=== PATIENT | female | born 1990 | race Caucasian/White ===

== ENCOUNTER 2021-02-26 10:10 | Emergency (ER) | payer OTHER ==
[2021-02-26 11:32] LABS: Absolute Neutrophil Ct (ANC) 6.17 (1.4-6.9); BASOPHIL % 0.5 % (0.0-0.4); Basophil (Absolute #) 0.04 (0-0.4); Eosinophil % 0.2 % (0.00-5.0); Eosinophil (Absolute #) 0.02 (0-0.5); Hematocrit 42.2 % (35-47); Hemoglobin 13.9 gm/dl (12.0-16.0); Lymphocyte (Absolute #) 1.45 (1.0-4.6); Lymphocytes % 17.4 % (24.0-44.0); Mean Cell Volume 96.6 fl (78-100); Mean Corpuscular Hemoglobin 31.8 pg (26-32); Mean Corpuscular Hgb Concent. 32.9 g/dl (32-36); Mean Platelet Volume 11.6 fl (7.5-11.0); Monocyte (Absolute #) 0.63 (0.0-1.3); Monocytes % 7.6 % (0.0-12.0); Neutrophil % 74.3 % (36.0-66.0); Platelet Count 220 K/mm3 (150-450); Red Blood Count 4.37 M/mm3 (4.1-5.4); Red Cell Distribution Width 12.8 % (11.5-14.0); White Blood Count 8.3 K/mm3 (4.0-10.5)
[2021-02-26 11:38] LABS: Appearance SLIGHTLY CLOUDY (CLEAR); Bacteria MODERATE /HPF (NEGATIVE); Bilirubin NEGATIVE (NEGATIVE); Blood NEGATIVE Ery/ul (0-5); Epithelial Cells FEW /HPF (FEW); Glucose NEGATIVE (NEGATIVE); Ketones MODERATE (NEGATIVE); Leukocyte Esterase NEGATIVE (NEGATIVE); Mucus SLIGHT /HPF (NEGATIVE); Nitrite NEGATIVE (NEGATIVE); Protein,Urine Dip 30 (Negative); Specific Gravity 1.042 (1.005-1.025); Urobilinogen NEGATIVE mg/dL (0-1)
[2021-02-26 11:41] LABS: ACETAMINOPHEN 30 ug/ml (10-30); ALBUMIN 4.5 g/dL (3.5-5.0); ALKALINE PHOSPHATASE 72 U/L (38-126); ANION GAP 16.4 MEQ/L (5-15); BLOOD UREA NITROGEN 9 mg/dL (7-17); CHLORIDE 108 mmol/L (98-107); Calcium 9.7 mg/dL (8.4-10.2); Carbon Dioxide 17 mmol/L (22-30); Creatinine 1 0.76 mg/dL (0.52-1.04); EST GLOMERULAR FILTRATION RATE > 60.0 ML/MIN; ETHYL ALCOHOL < 10 mg/dL (0-10); Glucose 109 mg/dL (74-106); Potassium 3.7 mmol/L (3.5-5.1); SALICYLATE 19.5 mg/dL (2-20); SGOT/AST 34 U/L (14-36); SGPT/ALT 20 U/L (0-35); SODIUM 138 mmol/L (137-145); Total Protein 7.4 g/dL (6.3-8.2)
[2021-02-26 11:51] LABS: Barbiturate,Urine NEGATIVE (NEGATIVE); Benzodiazepine,Urine POSITIVE (NEGATIVE); Cocaine,Urine NEGATIVE (NEGATIVE); Methadone,Urine NEGATIVE (NEGATIVE); Opiate,Urine NEGATIVE (NEGATIVE); PCP,Urine NEGATIVE (NEGATIVE); THC,Urine NEGATIVE (NEGATIVE)
--- NOTE | 2021-02-26 12:20 | ERPHSYRPT ---
- History of Present Illness Source: patient Exam Limitations: other (Poor historian) Patient Subjective Stated Complaint: Pt took approx 100 regular Excedrins around midnight last night and is now vomiting, no other complaints Triage Nursing Assessment: Pt was brought by her cousin to the ER due to taking approx 100 Excedrins, pt states that she doesn't know if she was trying to harm herself or not, states that she has in the past, vitasl wnl, restless, denies any other problems except vomiting, skin n/w/d, doesn't appear to be in any distress Physician History: 30 yo wf w overdose of Excedrin last night. Last dose at approximately midnight. Pt states that she has attempted suicide in the past. She will not talk about situational problems. Poison Control contacted. Timing/Duration: other (Last dose midnight) Severity of Symptoms-Max: mild Severity of Symptoms-Current: mild Context related to: other (Will not communicate) Associated Symptoms: denies symptoms, suicidal ideation Previous symptoms: same symptoms as today Allergies/Adverse Reactions: banana Allergy (Verified 02/26/21 10:31) Home Medications: Citalopram Hydrobromide [Citalopram HBr] 40 mg PO DAILY 02/26/21 [History] Hx Tetanus, Diphtheria Vaccination/Date Given: No Hx Influenza Vaccination/Date Given: Yes Hx Pneumococcal Vaccination/Date Given: No Travel Risk - International Travel Have you traveled outside of the country in past 3 weeks: No - Coronavirus Screening Are you exhibiting any of the following symptoms?: No Close contact with a COVID-19 positive Pt in past 14-21 Days: No - Vaccine Status Have you recieved a Covid-19 vaccination: Yes 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: [employer] - Past Medical History Pertinent Past Medical History: Yes Neurological History: Seizures Musculoskeletal History: Other Psycho-Social History: Bipolar Other Medical History: lupus - Past Surgical History Past Surgical History: Yes Other Surgical History: t&a, dnc x2 - Social History Smoking Status: Current every day smoker Exposure to second hand smoke: Yes Drug Use: marijuana, methamphetamines Patient Lives Alone: No Significant Family History: no pertinent family hx - Female History Hx Last Menstrual Period: now Hx Now: No - Review of Systems Constitutional: No Symptoms Eyes: No Symptoms Ears, Nose, & Throat: No Symptoms Respiratory: No Symptoms Cardiac: No Symptoms Abdominal/Gastrointestinal: No Symptoms Genitourinary Symptoms: No Symptoms Musculoskeletal: No Symptoms Skin: No Symptoms Neurological: No Symptoms Endocrine: No Symptoms Hematologic/Lymphatic: No Symptoms Immunological/Allergic: No Symptoms - Nursing Vital Signs Nursing Vital Signs: Initial Vital Signs Temperature 97.6 F 02/26/21 10:20 Pulse Rate 97 H 02/26/21 10:20 Respiratory Rate 25 H 02/26/21 10:20 Blood Pressure 114/65 02/26/21 10:20 O2 Sat by Pulse Oximetry 99 02/26/21 10:20 Pain Scale Pain Intensity 0 WNL - Physical Exam General Appearance: lethargy Eyes, Ears, Nose, Throat Exam: normal ENT inspection, TMs normal, pharynx normal, moist mucous membranes Neck Exam: normal inspection, non-tender, supple, full range of motion, No B rudzinski, No Kernig's, No meningismus Respiratory Exam: normal breath sounds, lungs clear, airway intact, No respiratory distress Cardiovascular Exam: regular rate/rhythm, normal heart sounds, normal peripheral pulses, No murmur Gastrointestinal/Abdominal Exam: soft, normal bowel sounds, No tenderness Extremities Exam: normal inspection, normal range of motion, No evidence of injury Peripheral Pulses: carotid (R): 2+, carotid (L): 2+ Current Suicidality: has suicide plan 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, oriented x 3, No anxious Appearance: appropriate appearance Behavior/Eye Contact/Speech: cooperative (Cooperative w exam but not w Hx), refused to answer Thoughts/Hallucinations: normal thought pattern, no apparent hallucination Skin Exam: normal color, warm, dry, No rash SpO2 Interpretation: normal SpO2: 98 O2 Delivery: Room Air - Course Nursing assessment & vital signs reviewed: Yes EKG Interpreted by Me: RATE (NSR/R74/IRBBB/Low voltage/Normal QT-QTc/No acute ST-Twave changes) Ordered Tests: Active Orders 24 hr Category Date Time Status EKG-ER Only STAT Care 02/26/21 10:21 Completed ACETAMINOPHEN Stat Lab 02/26/21 11:20 Completed ACETAMINOPHEN Stat Lab 02/26/21 13:50 Completed CBC W DIFF Stat Lab 02/26/21 11:20 Completed CMP Stat Lab 02/26/21 11:20 Completed CULTURE,URINE Stat Lab 02/26/21 11:09 Received ETHYL ALCOHOL Stat Lab 02/26/21 11:20 Completed HCG QUALITATIVE,SERUM Stat Lab 02/26/21 10:59 Completed SALICYLATE Stat Lab 02/26/21 11:20 Completed SALICYLATE Stat Lab 02/26/21 13:50 Completed UA W/RFX UR CULTURE Stat Lab 02/26/21 11:09 Completed Urine Triage Profile Stat Lab 02/26/21 11:09 Completed Medication Summary Discontinued Medications Generic Name Dose Route Start Last Admin Trade Name Sebastián PRN Reason Stop Dose Admin Sodium Chloride 1,000 mls @ 150 mls/hr 02/26/21 15:00 02/26/21 14:59 Sodium Chloride 0.9% 1000 Ml IV 03/28/21 14:59 150 mls/hr .[id number] OMAR Administration Sodium Chloride Confirm 02/26/21 14:57 Sodium Chloride 0.9% 1000 Ml Administered 02/26/21 14:58 Dose 1,000 mls @ ud .ROUTE .STK-MED ONE Lidocaine HCl Confirm 02/26/21 15:05 Xylocaine-Mpf 2% 5 Ml Vial Administered 02/26/21 15:06 Dose 5 ml .ROUTE .STK-MED ONE Lab/Rad Data: Laboratory Result Diagrams 02/26/21 11:20 02/26/21 11:20 Laboratory Results 02/26/21 02/26/21 02/26/21 Range/Units 14:17 13:50 11:20 WBC (4.0-10.5) K/mm3 RBC (4.1-5.4) M/mm3 Hgb (12.0-16.0) gm/dl Hct (35-47) % MCV (78-100) fl MCH (26-32) pg MCHC (32-36) g/dl RDW (11.5-14.0) % Plt Count (150-450) K/mm3 MPV (7.5-11.0) fl Gran % (36.0-66.0) % Eos # (Auto) (0-0.5) Absolute Lymphs (auto) (1.0-4.6) Absolute Monos (auto) (0.0-1.3) Lymphocytes % (24.0-44.0) % Monocytes % (0.0-12.0) % Eosinophils % (0.00-5.0) % Basophils % (0.0-0.4) % Absolute Granulocytes (1.4-6.9) Basophils # (0-0.4) Sodium 138 (137-145) mmol/L Potassium 3.7 (3.5-5.1) mmol/L Chloride 108 H (98-107) mmol/L Carbon Dioxide 17 L (22-30) mmol/L Anion Gap 16.4 H (5-15) MEQ/L BUN 9 (7-17) mg/dL Creatinine 0.76 (0.52-1.04) mg/dL Estimated GFR > 60.0 ML/MIN Glucose 109 H (74-106) mg/dL Calcium 9.7 (8.4-10.2) mg/dL Total Bilirubin 0.20 (0.2-1.3) mg/dL AST 34 (14-36) U/L ALT 20 (0-35) U/L Alkaline Phosphatase 72 (38-126) U/L Serum Total Protein 7.4 (6.3-8.2) g/dL Albumin 4.5 (3.5-5.0) g/dL Serum , Qual (Negative) Urine Color (YELLOW) Urine Appearance (CLEAR) Urine pH (5-6) Ur Specific [place] (1.005-1.025) Urine Protein (Negative) Urine Ketones (NEGATIVE) Urine Blood (0-5) Carlos/ul Urine Nitrite (NEGATIVE) Urine Bilirubin (NEGATIVE) Urine Urobilinogen (0-1) mg/dL Ur Leukocyte Esterase (NEGATIVE) Urine WBC (Auto) (0-5) /HPF Urine RBC (Auto) (0-2) /HPF U Epithel Cells (Auto) (FEW) /HPF Urine Bacteria (Auto) (NEGATIVE) /HPF Urine Mucus (Auto) (NEGATIVE) /HPF Urine Culture Reflexed (NO) Urine Glucose (NEGATIVE) mg/dL Salicylates 17.4 19.5 (2-20) mg/dL Urine Opiates Level (NEGATIVE) Ur Methadone (NEGATIVE) Acetaminophen 17 30 (10-30) ug/ml Urine Barbiturates (NEGATIVE) Ur Phencyclidine (PCP) (NEGATIVE) Urine Amphetamine (NEGATIVE) U Benzodiazepine Level (NEGATIVE) Urine Cocaine (NEGATIVE) Urine Marijuana (THC) (NEGATIVE) Ethyl Alcohol < 10 (0-10) mg/dL SARS-CoV-2 (PCR) NEGATIVE (NEGATIVE) 02/26/21 02/26/21 02/26/21 Range/Units 11:20 11:09 11:09 WBC 8.3 (4.0-10.5) K/mm3 RBC 4.37 (4.1-5.4) M/mm3 Hgb 13.9 (12.0-16.0) gm/dl Hct 42.2 (35-47) % MCV 96.6 (78-100) fl MCH 31.8 (26-32) pg MCHC 32.9 (32-36) g/dl RDW 12.8 (11.5-14.0) % Plt Count 220 (150-450) K/mm3 MPV 11.6 H (7.5-11.0) fl Gran % 74.3 H (36.0-66.0) % Eos # (Auto) 0.02 (0-0.5) Absolute Lymphs (auto) 1.45 (1.0-4.6) Absolute Monos (auto) 0.63 (0.0-1.3) Lymphocytes % 17.4 L (24.0-44.0) % Monocytes % 7.6 (0.0-12.0) % Eosinophils % 0.2 (0.00-5.0) % Basophils % 0.5 (0.0-0.4) % Absolute Granulocytes 6.17 (1.4-6.9) Basophils # 0.04 (0-0.4) Sodium (137-145) mmol/L Potassium (3.5-5.1) mmol/L Chloride (98-107) mmol/L Carbon Dioxide (22-30) mmol/L Anion Gap (5-15) MEQ/L BUN (7-17) mg/dL Creatinine (0.52-1.04) mg/dL Estimated GFR ML/MIN Glucose (74-106) mg/dL Calcium (8.4-10.2) mg/dL Total Bilirubin (0.2-1.3) mg/dL AST (14-36) U/L ALT (0-35) U/L Alkaline Phosphatase (38-126) U/L Serum Total Protein (6.3-8.2) g/dL Albumin (3.5-5.0) g/dL Serum , Qual (Negative) Urine Color YELLOW (YELLOW) Urine Appearance SLIGHTLY CLOUDY (CLEAR) Urine pH 5.0 (5-6) Ur Specific [place] 1.042 (1.005-1.025) Urine Protein 30 (Negative) Urine Ketones MODERATE (NEGATIVE) Urine Blood NEGATIVE (0-5) Carlos/ul Urine Nitrite NEGATIVE (NEGATIVE) Urine Bilirubin NEGATIVE (NEGATIVE) Urine Urobilinogen NEGATIVE (0-1) mg/dL Ur Leukocyte Esterase NEGATIVE (NEGATIVE) Urine WBC (Auto) 6-10 (0-5) /HPF Urine RBC (Auto) 6-10 (0-2) /HPF U Epithel Cells (Auto) FEW (FEW) /HPF Urine Bacteria (Auto) MODERATE (NEGATIVE) /HPF Urine Mucus (Auto) SLIGHT (NEGATIVE) /HPF Urine Culture Reflexed YES (NO) Urine Glucose NEGATIVE (NEGATIVE) mg/dL Salicylates (2-20) mg/dL Urine Opiates Level NEGATIVE (NEGATIVE) Ur Methadone NEGATIVE (NEGATIVE) Acetaminophen (10-30) ug/ml Urine Barbiturates NEGATIVE (NEGATIVE) Ur Phencyclidine (PCP) NEGATIVE (NEGATIVE) Urine Amphetamine POSITIVE (NEGATIVE) U Benzodiazepine Level POSITIVE (NEGATIVE) Urine Cocaine NEGATIVE (NEGATIVE) Urine Marijuana (THC) NEGATIVE (NEGATIVE) Ethyl Alcohol (0-10) mg/dL SARS-CoV-2 (PCR) (NEGATIVE) 02/26/21 Range/Units 10:59 WBC (4.0-10.5) K/mm3 RBC (4.1-5.4) M/mm3 Hgb (12.0-16.0) gm/dl Hct (35-47) % MCV (78-100) fl MCH (26-32) pg MCHC (32-36) g/dl RDW (11.5-14.0) % Plt Count (150-450) K/mm3 MPV (7.5-11.0) fl Gran % (36.0-66.0) % Eos # (Auto) (0-0.5) Absolute Lymphs (auto) (1.0-4.6) Absolute Monos (auto) (0.0-1.3) Lymphocytes % (24.0-44.0) % Monocytes % (0.0-12.0) % Eosinophils % (0.00-5.0) % Basophils % (0.0-0.4) % Absolute Granulocytes (1.4-6.9) Basophils # (0-0.4) Sodium (137-145) mmol/L Potassium (3.5-5.1) mmol/L Chloride (98-107) mmol/L Carbon Dioxide (22-30) mmol/L Anion Gap (5-15) MEQ/L BUN (7-17) mg/dL Creatinine (0.52-1.04) mg/dL Estimated GFR ML/MIN Glucose (74-106) mg/dL Calcium (8.4-10.2) mg/dL Total Bilirubin (0.2-1.3) mg/dL AST (14-36) U/L ALT (0-35) U/L Alkaline Phosphatase (38-126) U/L Serum Total Protein (6.3-8.2) g/dL Albumin (3.5-5.0) g/dL Serum , Qual NEGATIVE (Negative) Urine Color (YELLOW) Urine Appearance (CLEAR) Urine pH (5-6) Ur Specific [place] (1.005-1.025) Urine Protein (Negative) Urine Ketones (NEGATIVE) Urine Blood (0-5) Carlos/ul Urine Nitrite (NEGATIVE) Urine Bilirubin (NEGATIVE) Urine Urobilinogen (0-1) mg/dL Ur Leukocyte Esterase (NEGATIVE) Urine WBC (Auto) (0-5) /HPF Urine RBC (Auto) (0-2) /HPF U Epithel Cells (Auto) (FEW) /HPF Urine Bacteria (Auto) (NEGATIVE) /HPF Urine Mucus (Auto) (NEGATIVE) /HPF Urine Culture Reflexed (NO) Urine Glucose (NEGATIVE) mg/dL Salicylates (2-20) mg/dL Urine Opiates Level (NEGATIVE) Ur Methadone (NEGATIVE) Acetaminophen (10-30) ug/ml Urine Barbiturates (NEGATIVE) Ur Phencyclidine (PCP) (NEGATIVE) Urine Amphetamine (NEGATIVE) U Benzodiazepine Level (NEGATIVE) Urine Cocaine (NEGATIVE) Urine Marijuana (THC) (NEGATIVE) Ethyl Alcohol (0-10) mg/dL SARS-CoV-2 (PCR) (NEGATIVE) - Progress Progress Note: 02/26/21 15:[address] Peraza since 1 to 1 nursing not available 02/26/21 16:[address] Coleman at [facility] 02/26/21 22:07 Pt stable when EMS assumed care of pt Pt w good airway during entire stay. Tylenol/salicylate level way below toxic level Counseled pt/family regarding: lab results, diagnosis - Departure Departure Disposition: Transfer Clinical Impression: Overdose, Substance abuse Condition: Stable Critical Care Time: Yes Critical Care Time(excluding separately billable procedures): Critical 30-74 mins Referrals: YARITZA GONZALES, TIPPING MACHINE OPERATOR [Primary Care Provider] -
[2021-02-26 13:57] LABS: Amphetamine,Urine POSITIVE (NEGATIVE)
[2021-02-26] MEDS ORDERED: Sodium Chloride 0.9% 1000 ML 1,000 ML ONE (14:57)
[2021-02-26 15:00] LABS: SALICYLATE 17.4 mg/dL (2-20)
[2021-02-26] MEDS ORDERED: Sodium Chloride 0.9% 1000 ML 1,000 ML IV SCH (15:00)
[2021-02-26] MEDS ORDERED: Xylocaine-Mpf 2% 5 Ml Vial ONE (15:05)
[2021-02-26 18:12] VITALS: BP 117/63; PULSE 75
[2021-02-26 22:08] VITALS: O2SAT 98
== END 2021-02-26 18:30 | disposition critical access hospital (66) ==
LOC: ED 10:10
DX: T65.91XA Toxic effect of unspecified substance, accidental (unintentional), initial encounter (principal); F19.10 Other psychoactive substance abuse, uncomplicated
CPT/HCPCS: 36000; 36415; 76942; 80053; 80307; 81001; 81025; 85025; 87077; 87086; 87186; 93005; 96360; 96361; 99284; 99291; G0480; U0003

== ENCOUNTER 2021-04-27 18:40 | Emergency (ER) | payer OTHER ==
[2021-04-27] MEDS ORDERED: Sterile H2O 10 ml IJ ONE (19:26)
[2021-04-27] MEDS ORDERED: solu-MEDROL ONE (19:26)
--- NOTE | 2021-04-27 19:35 | ERPHSYRPT ---
- History of Present Illness Time Seen by Provider: 04/27/21 19:05 Source: patient Exam Limitations: no limitations Patient Subjective Stated Complaint: poison jie rash not improving, increased nasuea and eye swelling Triage Nursing Assessment: pt to ED c/o poison jie rash, nausea, and increased eye swelling after taking decadron injection at [facility] ED 04/24/21. pt states she was exposed to poison jie few days before beingseen at [facility], was given steroid shot, and has not felt well since then. also reports rash seems to be worsening. no diff breathing, no angioedema. Physician History: Patient is a 31-year-old white female who presents with a complaint of spreading worsening rash. She was seen in [facility] and diagnosed with probable poison jie was given a shot of Decadron and initially had some mild relief but later the rash came back worse. She has swelling around the eyes face extremities Timing/Duration: week(s) (2) Quality: burning, itchy Severity: severe Location: face, extremities Possible Causes: poison jie Modifying Factors: Improves With: antihistamine Associated Symptoms: denies symptoms Allergies/Adverse Reactions: banana Allergy (Verified 04/27/21 19:05) " enduced, does not have allergy anymore." Home Medications: lamoTRIgine [Lamotrigine] 25 mg PO DAILY 04/27/21 [History] Hx Tetanus, Diphtheria Vaccination/Date Given: No Hx Influenza Vaccination/Date Given: Yes Hx Pneumococcal Vaccination/Date Given: No Travel Risk - International Travel Have you traveled outside of the country in past 3 weeks: No (n) If Yes, where;: n - Coronavirus Screening Close contact with a COVID-19 positive Pt in past 14-21 Days: No - Vaccine Status Have you recieved a Covid-19 vaccination: No 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 - Review of Systems Constitutional: No Fever, No Chills Eyes: No Symptoms Ears, Nose, & Throat: No Symptoms Respiratory: No Cough, No Dyspnea Cardiac: No Chest Pain, No Edema, No Syncope Abdominal/Gastrointestinal: No Abdominal Pain, No Nausea, No Vomiting, No Diarrhea Genitourinary Symptoms: No Dysuria Musculoskeletal: No Back Pain, No Neck Pain Skin: No Rash Neurological: No Dizziness, No Focal Weakness, No Sensory Changes Psychological: No Symptoms Endocrine: No Symptoms All Other Systems: Reviewed and Negative - Past Medical History Pertinent Past Medical History: Yes Neurological History: Seizures Musculoskeletal History: Other Psycho-Social History: Bipolar Other Medical History: lupus - Past Surgical History Past Surgical History: Yes Other Surgical History: t&a, dnc x2 - Social History Smoking Status: Current every day smoker How long have you smoked: years Exposure to second hand smoke: Yes Drug Use: none Patient Lives Alone: No Significant Family History: no pertinent family hx - Female History Hx Last Menstrual Period: 04/24/21 Hx Now: No - Nursing Vital Signs Nursing Vital Signs: Initial Vital Signs Temperature 97.8 F 04/27/21 18:53 Pulse Rate 117 H 04/27/21 18:53 Respiratory Rate 16 04/27/21 18:53 Blood Pressure 127/67 04/27/21 18:53 O2 Sat by Pulse Oximetry 99 04/27/21 18:53 Pain Scale Pain Intensity 7 - Physical Exam General Appearance: mild distress Eye Exam: PERRL/EOMI, eyes nml inspection Ears, Nose, Throat Exam: normal ENT inspection, pharynx normal, moist mucous membranes Neck Exam: normal inspection, non-tender, supple, full range of motion Respiratory Exam: normal breath sounds, lungs clear, No respiratory distress Cardiovascular Exam: regular rate/rhythm, normal heart sounds Gastrointestinal/Abdomen Exam: soft, mass, No tenderness Back Exam: normal inspection, normal range of motion, No CVA tenderness, No vertebral tenderness Extremity Exam: normal inspection, normal range of motion Neurologic Exam: alert, oriented x 3, cooperative, normal mood/affect, sensation nml, No motor deficits Skin Exam: warm, rash, other (Vesicular rash linear in spots pruritic in nature) Lymphatic Exam: No adenopathy SpO2 Interpretation: normal SpO2: 99 O2 Delivery: Room Air - Course Nursing assessment & vital signs reviewed: Yes Ordered Tests: Medication Summary Discontinued Medications Generic Name Dose Route Start Last Admin Trade Name Freq PRN Reason Stop Dose Admin Methylprednisolone Sodium Succinate Confirm 04/27/21 19:26 Solu-Medrol Administered 04/27/21 19:27 Dose 125 mg .ROUTE .STK-MED ONE Sterile Water Confirm 04/27/21 19:26 Sterile H2o 10 Ml Administered 04/27/21 19:27 Dose 10 ml IJ .STK-MED ONE - Progress Progress: unchanged - Departure Departure Disposition: Home Clinical Impression: Contact dermatitis Condition: Stable Critical Care Time: No 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
[2021-04-27] MEDS ORDERED: solu-MEDROL 125 MG, Sterile H2O 10 ml 2 ML IM ONE ×2 (19:36)
[2021-04-27 19:56] VITALS: BP 101/59; PULSE 82; O2SAT 97
== END 2021-04-27 19:56 | disposition home or self-care (01) ==
LOC: ED 18:40
DX: L23.7 Allergic contact dermatitis due to plants, except food (principal)
CPT/HCPCS: 96372; 99283; J2930

== ENCOUNTER 2021-05-22 18:00 | Emergency (ER) | payer OTHER ==
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
[2021-05-22 18:13] VITALS: O2SAT 100
[2021-05-22] MEDS ORDERED: Sodium Chloride 0.9% 1000 ML 1,000 ML ONE (18:13)
[2021-05-22] MEDS ORDERED: Sodium Chloride 0.9% 1000 ML 1,000 ML IV STA (18:14)
[2021-05-22 18:31] VITALS: BP 117/88; PULSE 90
[2021-05-22 18:34] LABS: BASOPHIL % 0.5 % (0.0-0.4); Basophil (Absolute #) 0.04 (0-0.4); Eosinophil % 3.3 % (0.00-5.0); Eosinophil (Absolute #) 0.24 (0-0.5); Hematocrit 36.4 % (35-47); Hemoglobin 11.6 gm/dl (12.0-16.0); Lymphocyte (Absolute #) 1.89 (1.0-4.6); Lymphocytes % 25.6 % (24.0-44.0); Mean Cell Volume 97.6 fl (78-100); Mean Corpuscular Hemoglobin 31.1 pg (26-32); Mean Corpuscular Hgb Concent. 31.9 g/dl (32-36); Mean Platelet Volume 11.3 fl (7.5-11.0); Monocyte (Absolute #) 0.61 (0.0-1.3); Monocytes % 8.3 % (0.0-12.0); Neutrophil % 62.3 % (36.0-66.0); Platelet Count 207 K/mm3 (150-450); Red Blood Count 3.73 M/mm3 (4.1-5.4); Red Cell Distribution Width 12.7 % (11.5-14.0); White Blood Count 7.4 K/mm3 (4.0-10.5)
[2021-05-22 18:36] LABS: Appearance SLIGHTLY CLOUDY (CLEAR); Bilirubin NEGATIVE (NEGATIVE); Blood SMALL Ery/ul (0-5); Epithelial Cells RARE /HPF (FEW); Glucose NEGATIVE (NEGATIVE); Ketones NEGATIVE (NEGATIVE); Leukocyte Esterase TRACE (NEGATIVE); Mucus SLIGHT /HPF (NEGATIVE); Nitrite NEGATIVE (NEGATIVE); Protein,Urine Dip NEGATIVE (Negative); Specific Gravity 1.018 (1.005-1.025); Urobilinogen NEGATIVE mg/dL (0-1)
[2021-05-22 18:38] LABS: Bacteria NONE SEEN /HPF (NEGATIVE)
[2021-05-22 18:39] LABS: Barbiturate,Urine NEGATIVE (NEGATIVE); Benzodiazepine,Urine POSITIVE (NEGATIVE); Cocaine,Urine NEGATIVE (NEGATIVE); Methadone,Urine NEGATIVE (NEGATIVE); Opiate,Urine NEGATIVE (NEGATIVE); PCP,Urine NEGATIVE (NEGATIVE); THC,Urine NEGATIVE (NEGATIVE)
[2021-05-22 18:42] LABS: INR 0.97 (0.8-3.0); PROTIME 11.5 SECONDS (9.4-12.5)
[2021-05-22 18:49] LABS: ALBUMIN 3.8 g/dL (3.5-5.0); ALKALINE PHOSPHATASE 50 U/L (38-126); AMYLASE 54 U/L (30-110); ANION GAP 10.8 MEQ/L (5-15); BLOOD UREA NITROGEN 10 mg/dL (7-17); CHLORIDE 110 mmol/L (98-107); Calcium 8.4 mg/dL (8.4-10.2); Carbon Dioxide 21 mmol/L (22-30); Creatinine 1 0.63 mg/dL (0.52-1.04); EST GLOMERULAR FILTRATION RATE > 60.0 ML/MIN; ETHYL ALCOHOL < 10 mg/dL (0-10); Glucose 99 mg/dL (74-106); LIPASE 50 U/L (23-300); SGOT/AST 27 U/L (14-36); SGPT/ALT 17 U/L (0-35); SODIUM 137 mmol/L (137-145); Total Protein 6.3 g/dL (6.3-8.2)
[2021-05-22 18:58] LABS: Amphetamine,Urine POSITIVE (NEGATIVE)
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
== END 2021-05-22 18:40 | disposition short-term general hospital (02) ==
LOC: ED 18:00
DX: R10.9 Unspecified abdominal pain (principal); V89.2XXA Person injured in unspecified motor-vehicle accident, traffic, initial encounter; Y93.89 Activity, other specified; Y92.89 Other specified places as the place of occurrence of the external cause; R07.9 Chest pain, unspecified; M25.519 Pain in unspecified shoulder
CPT/HCPCS: 36000; 36415; 51702; 70450; 71250; 72125; 74176; 76376; 80053; 80307; 81001; 82150; 83690; 85025; 85610; 87086; 93005; 99285; 99291; G0480; 87077; 87186

== ENCOUNTER 2022-03-23 14:56 | Emergency (ER) | payer OTHER ==
[2022-03-23 15:05] VITALS: BP 115/71; PULSE 100; O2SAT 100
--- NOTE | 2022-03-23 15:06 | ERPHSYRPT ---
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 She feels she has another bout of this entity. Patient has tried calamine lotion but is not relieving her symptoms. Patient does not have a cough. She has not had any shortness of breath. Timing/Duration: day(s) (2) Quality: burning, itchy Severity: mild Location: scalp, face, hands, feet, extremities Possible Causes: poison elena Modifying Factors: Improves With: calamine lotion Associated Symptoms: denies symptoms Allergies/Adverse Reactions: latex Allergy (Verified 03/23/22 15:05) Hx Tetanus, Diphtheria Vaccination/Date Given: No Hx Influenza Vaccination/Date Given: Yes Hx Pneumococcal Vaccination/Date Given: No Immunizations Up to Date: Yes Travel Risk - International Travel Have you traveled outside of the country in past 3 weeks: No - Coronavirus Screening Are you exhibiting any of the following symptoms?: No - Vaccine Status Have you recieved a Covid-19 vaccination: Yes 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 - Review of Systems Constitutional: No Symptoms Eyes: No Symptoms Ears, Nose, & Throat: No Symptoms Respiratory: No Symptoms Cardiac: No Symptoms Abdominal/Gastrointestinal: No Symptoms Genitourinary Symptoms: No Symptoms Musculoskeletal: No Symptoms Skin: Rash, Other (Consistent with poison elena exposure) Neurological: No Symptoms Psychological: No Symptoms Endocrine: No Symptoms Hematologic/Lymphatic: No Symptoms Immunological/Allergic: No Symptoms All Other Systems: Reviewed and Negative - Past Medical History Pertinent Past Medical History: Yes Neurological History: Seizures Musculoskeletal History: Other Psycho-Social History: Bipolar Other Medical History: lupus - Past Surgical History Past Surgical History: Yes Other Surgical History: t&a, dnc x2 - Social History Smoking Status: Current every day smoker How long have you smoked: years Exposure to second hand smoke: Yes Drug Use: marijuana Patient Lives Alone: No Significant Family History: no pertinent family hx - Female History Hx Last Menstrual Period: now Hx Now: No - Nursing Vital Signs Nursing Vital Signs: Initial Vital Signs Temperature 98.2 F 03/23/22 15:01 Pulse Rate 100 H 03/23/22 15:01 Respiratory Rate 16 03/23/22 15:01 Blood Pressure 115/71 03/23/22 15:01 O2 Sat by Pulse Oximetry 100 03/23/22 15:01 Pain Scale Pain Intensity 5 - Physical Exam General Appearance: no apparent distress, alert, anxiety Eye Exam: PERRL/EOMI, eyes nml inspection Ears, Nose, Throat Exam: normal ENT inspection, moist mucous membranes Neck Exam: normal inspection, non-tender, supple, full range of motion Respiratory Exam: normal breath sounds, lungs clear, airway intact, No chest tenderness, No respiratory distress Cardiovascular Exam: regular rate/rhythm, normal heart sounds, normal peripheral pulses Gastrointestinal/Abdomen Exam: No tenderness Pelvic Exam: not done Rectal Exam: not done Back Exam: normal inspection, normal range of motion, No CVA tenderness, No vertebral tenderness Extremity Exam: normal range of motion, pelvis stable Neurologic Exam: alert, oriented x 3, cooperative, manager instrumentation II-XII nml as tested, normal mood/affect, nml cerebellar function, nml station & gait, sensation nml Skin Exam: other (Rash generalized consistent with contact dermatitis from poison elena) Lymphatic Exam: No adenopathy SpO2 Interpretation: normal SpO2: 100 O2 Delivery: Room Air - Course Nursing assessment & vital signs reviewed: Yes Ordered Tests: Medication Summary Discontinued Medications Generic Name Dose Route Start Last Admin Trade Name Sebastián PRN Reason Stop Dose Admin Methylprednisolone Sodium 0 mg 03/23/22 16:24 Succinate 80 mg/ Sterile Water IM 03/23/22 16:25 2 ml STAT ONE - Progress Progress: unchanged Counseled pt/family regarding: diagnosis, need for follow-up - Departure Departure Disposition: Home Clinical Impression: Contact dermatitis Condition: Stable Critical Care Time: No Referrals: CHRISTINE LOPEZ NP [Primary Care Provider] - Follow up/PCP as directed Additional Instructions: Keep skin area clean and dry. Use Benadryl 25 to 50 mg [id number] orally 3 times a day for the next 4 days. Use your prednisone as prescribed. Follow- up with your primary care physician for further evaluation and management. Prescriptions: Prednisone 10 mg [Deltasone 10 mg] 10 mg PO TID #12 tablet
[2022-03-23] MEDS ORDERED: solu-MEDROL 80 MG, Sterile H2O 10 ml 2 ML IM ONE ×2 (16:24)
[2022-03-23] MEDS ORDERED: Sterile H2O 10 ml IJ ONE (16:41)
[2022-03-23] MEDS ORDERED: solu-MEDROL ONE (16:41)
== END 2022-03-23 16:59 | disposition home or self-care (01) ==
LOC: ED 14:56
DX: L23.7 Allergic contact dermatitis due to plants, except food (principal); Z72.0 Tobacco use; Z79.52 Long term (current) use of systemic steroids
CPT/HCPCS: 96372; 99282; J2930

== ENCOUNTER 2023-11-01 13:43 | Emergency (ER) | payer BC, OTHER ==
[2023-11-01 14:06] VITALS: PULSE 101; TEMP 98.3
--- NOTE | 2023-11-01 14:43 | ERPHSYRPT ---
- History of Present Illness Time Seen by Provider: 11/01/23 14:40 Source: patient Exam Limitations: no limitations Patient Subjective Stated Complaint: pt had been walking trails and came in contact with poison elena and needs a steroid shot, she also had a tick on her back and would like the spot checked out Triage Nursing Assessment: Pt brought to the ER by her mother, tachycardic, denies pain, just itching, pulses normal, skin n/w/d, rash on face/arms/chin/elbows, tick bite to right shoulder blade, doesn't appear to be in any distress Physician History: 33yo f presents via private vehicle for poison elena rash, tic bite. Pt states she went on a nature hike 2d ago on wooded trails, states she began to have itchy rash yesterday, also had a tic bite on her back. Pt states the rash has progressed, is very itchy but is not bullous, no blistering, present on her forearms b/l and left side neck/chin. Pt states the tic was removed from her back, states she still feels a small bump on her back where it occurred. Pt currently denies fevers, chills, muscle cramps, muscle weakness, neck stiffness, cp, soa. Timing/Duration: day(s), worse Quality: itchy Severity: mild Location: extremities, neck Possible Causes: exposure to allergen, poison elena Associated Symptoms: No blisters, No difficulty breathing, No sore throat, No swelling/mass/lumps Allergies/Adverse Reactions: latex Allergy (Verified 11/01/23 14:06) Home Medications: Norgestimate-Ethinyl Estradiol [Richardson-Linyah] 1 each PO DAILY 11/01/23 [History] Hx Tetanus, Diphtheria Vaccination/Date Given: No Hx Influenza Vaccination/Date Given: Yes Hx Pneumococcal Vaccination/Date Given: No Travel Risk - International Travel Have you traveled outside of the country in past 3 weeks: No - Emerging Infectious Disease Are you exhibiting symptoms associated with any current EIDs: No - Review of Systems Constitutional: No Symptoms Respiratory: No Symptoms Cardiac: No Symptoms Abdominal/Gastrointestinal: No Symptoms Skin: Rash - Past Medical History Pertinent Past Medical History: Yes Neurological History: Seizures Musculoskeletal History: Other Psycho-Social History: Bipolar Other Medical History: lupus - Past Surgical History Past Surgical History: Yes Other Surgical History: t&a, dnc x2 Significant Family History: no pertinent family hx - Female History Hx Last Menstrual Period: 10/06/2023 Hx Now: No - Social History Smoking Status: Current every day smoker How long have you smoked: years Exposure to second hand smoke: Yes Drug Use: marijuana Patient Lives Alone: No - Nursing Vital Signs Nursing Vital Signs: Initial Vital Signs Temperature 98.3 F 11/01/23 13:58 Pulse Rate 101 H 11/01/23 13:58 Blood Pressure 108/69 11/01/23 13:58 O2 Sat by Pulse Oximetry 100 11/01/23 13:58 Pain Scale Pain Intensity 0 - Physical Exam General Appearance: no apparent distress, alert Respiratory Exam: normal breath sounds, lungs clear, airway intact, No chest tenderness, No respiratory distress Cardiovascular Exam: regular rate/rhythm, normal heart sounds Back Exam: other (right upper back near right scapular spine: mild erythema surrounding bite w/o drainage, no presence of retained foreign body) Neurologic Exam: alert, oriented x 3, cooperative Skin Exam: normal color, warm, dry, rash (contact dermatitis on b/l wrists, left anterior neck/jaw; non-blistering, mildly erythematous macules) SpO2: 100 O2 Delivery: Room Air Ordered Tests: Medication Summary Discontinued Medications Generic Name Dose Route Start Last Admin Trade Name Sebastián PRN Reason Stop Dose Admin Prednisone 60 mg 11/01/23 14:46 11/01/23 14:59 Prednisone 20 Mg Tablet PO 11/01/23 14:47 60 mg STAT ONE Administration Prednisone Confirm 11/01/23 14:58 Prednisone 20 Mg Tablet Administered 11/01/23 14:59 Dose 60 mg .ROUTE .STK-MED ONE - Progress Progress: pain not gone completely Progress Note: 11/01/23 15:16 given 1 dose 60mg prednisone PO in ED contact dermatitis tic bite well healing, mild erythema surrounding bite w/o drainage, no presence of retained foreign body in lesion 11/01/23 15:18 plan for dc home w/ PCP f/u Dr Clayton will send 4days of prednisone 60mg PO for contact dermatitis instructed to return to ED if: develop muscle cramps/weakness, large bullseye rash on back, rash significantly worsens Counseled pt/family regarding: diagnosis Medical Desision Making - Diagnostic Testing Diagnostic test were ordered, analyzed, and reviewed by me: No - Risk of complications Minimal Risk: Minimal risk of morbidity - Departure Departure Disposition: Home Clinical Impression: Contact dermatitis Qualifiers: Contact dermatitis type: allergic Contact dermatitis trigger: other trigger Qualified Code(s): L23.89 - Allergic contact dermatitis due to other agents; L23.8 - Allergic contact dermatitis due to other agents Tick bite Qualifiers: Encounter type: initial encounter Site of tick bite: unspecified site Qualified Code(s): W57.XXXA - Bitten or stung by nonvenomous insect and other nonvenomous arthropods, initial encounter Condition: Stable Critical Care Time: No Referrals: ROCK CLAYTON MD [Primary Care Provider] - Follow up/PCP as directed Additional Instructions: plan for dc home w/ PCP f/u Dr Clayton will send 4days of prednisone 60mg PO for contact dermatitis instructed to return to ED if: develop muscle cramps/weakness, large bullseye rash on back, rash significantly worsens Prescriptions: Prednisone 20 mg [Deltasone 20 mg] 60 mg PO DAILY 4 Days #4 tablet
[2023-11-01] MEDS ORDERED: DELTASONE 20 MG ONE (14:58)
[2023-11-01] MEDS: DELTASONE 20 MG PO ONE (14:59)
[2023-11-01 15:11] VITALS: BP 115/72
[2023-11-01 15:16] VITALS: O2SAT 100
== END 2023-11-01 15:29 | disposition home or self-care (01) ==
LOC: ED 13:43
DX: L23.89 Allergic contact dermatitis due to other agents (principal); S20.461A Insect bite (nonvenomous) of right back wall of thorax, initial encounter; W57.XXXA Bitten or stung by nonvenomous insect and other nonvenomous arthropods, initial encounter; Y92.828 Other wilderness area as the place of occurrence of the external cause; Z79.52 Long term (current) use of systemic steroids; Z72.0 Tobacco use
CPT/HCPCS: 99282; A9270-GY